=== PATIENT | female | born 1990 | race Caucasian/White ===

== ENCOUNTER 2022-06-11 12:56 | Emergency (ER) | payer OTHER ==
[~2022-06-11] VITALS: Ht 165.1 cm; Wt 95.3 kg
--- NOTE | 2022-06-11 14:15 | NUR ---
Pt arrived with c/o LL back pain radiating to the LLQ of the abd, rated 7/10, characterized as aching. Also stated that she's having pain on her L upper thigh, also rated 7/10 and characterized as tingling. Pt stated that she noticed the pain started on April 2022 and has gotten worse. Pt last bm and meal was this morning. No dysuria and hematuria reported. Pt stated that she has difficulty bending forward and walking d/t pain. Seen by Dr. Cunningham for MSE.
[2022-06-11 14:24] LABS: HEMATOCRIT 39.6 % (31.2-41.9); MEAN CORPUSCULAR HEMOGLOBIN 26.4 uug (24.7-32.8); PLATELET COUNT (AUTO) 291 K/uL (179-408)
[2022-06-11 14:25] LABS: CREATININE 0.7 mg/dL (0.6-1.3); POTASSIUM 4.2 mmol/L (3.5-5.1)
[2022-06-11 14:28] LABS: *BILIRUBIN,URIN NEGATIVE (NEGATIVE); *BLOOD, URINE NEGATIVE (NEGATIVE); *CLARITY,URINE CLEAR (CLEAR); *COLOR,URINE YELLOW (YELLOW); *KETONES,URINE NEGATIVE (NEGATIVE); *UROBILINOGEN,URINE 0.2 E.U./dl (NORMAL); LEUKOCYTE ESTERASE ,URINE NEGATIVE (NEGATIVE); NITRITE, URINE NEGATIVE (NEGATIVE); PH,URINE 6.5 (5.0-8.0); UGLUCOSE NEGATIVE (NEGATIVE)
[2022-06-11 14:29] LABS: *URINE HCG, QUAL NEGATIVE (NEGATIVE)
[2022-06-11] MEDS ORDERED: KETOROLAC TROMETHAMINE 30 MG INJ ONE (14:43)
[2022-06-11] MEDS ORDERED: KETOROLAC TROMETHAMINE 30 MG INJ IVP ONE (14:45)
[2022-06-11] MEDS ORDERED: NAPR-1164 PO (16:18)
[2022-06-11] MEDS ORDERED: CYCL10TA9 PO (16:18)
--- NOTE | 2022-06-11 16:34 | NUR ---
Pt discharged to home in stable condition. Written and verbal after care instructions given. Pt verbalizes understanding of instructions. Stressed follow up or return to ER for worsening s/s.
[2022-06-11 16:36] VITALS: BP 137/81
== END 2022-06-11 16:37 | disposition home or self-care (01) ==
LOC: ER 12:59
DX: M54.42 Lumbago with sciatica, left side (principal); R10.32 Left lower quadrant pain
CPT/HCPCS: 99284; 74176; 96374; 80048; 81003; 84703; 85025; 36415; J1885; A4663

== ENCOUNTER 2022-10-27 21:05 | Emergency (ER) | payer OTHER ==
[~2022-10-27] VITALS: Ht 165.1 cm; Wt 108.9 kg
[~2022-10-27 21:05] MED LIST: CYCL10TA9 PO; NAPR-1164 PO
--- NOTE | 2022-10-27 23:30 | NUR ---
Dr. Alexis evaluated patient at bedside. MSE in progress
[2022-10-27] MEDS ORDERED: HYDR-3972 PO (23:55)
--- NOTE | 2022-10-28 00:21 | NUR ---
Patient discharged to home in stable condition. Written and verbal after care instructions given. Patient verbalizes understanding of instructions. Stressed follow up or return to ER for worsening s/s.
[2022-10-28 03:55] VITALS: BP 135/85
== END 2022-10-28 00:21 | disposition home or self-care (01) ==
LOC: ER 21:05
DX: H92.01 Otalgia, right ear (principal); H93.19 Tinnitus, unspecified ear
CPT/HCPCS: A4663

== ENCOUNTER 2023-06-18 14:10 | Emergency (ER) | payer OTHER ==
[~2023-06-18] VITALS: Ht 165.1 cm; Wt 112.5 kg
[~2023-06-18 14:10] MED LIST changes: +HYDR-3972 PO
[2023-06-18 17:21] VITALS: BP 141/85; TEMP 96.7; O2SAT 99
== END 2023-06-18 17:43 | disposition home or self-care (01) ==
LOC: ER 14:10
DX: M79.671 Pain in right foot (principal); Z79.899 Other long term (current) drug therapy
CPT/HCPCS: 73650; A4606; A4663

== ENCOUNTER 2023-09-10 17:26 | Emergency (ER) | payer OTHER ==
[~2023-09-10] VITALS: Ht 165.1 cm; Wt 104.3 kg
[2023-09-10] MEDS ORDERED: IV NORMAL SALINE 1000 ML BAG IV ONE (18:30)
[2023-09-10] MEDS ORDERED: HYDROCODONE/APAP 10-325 MG TABLET PO ONE (18:45)
[2023-09-10] MEDS ORDERED: ONDANSETRON ODT 4 MG TAB.RAPDIS SL ONE (18:45)
[2023-09-10 18:46] LABS: BASOPHILS # (AUTO) 0.4 K/UL (0.0-0.2); BASOPHILS % (AUTO) 4.8 % (0.0-2.0); DIFFERENTIAL COMMENT 1; EOSINOPHILS # (AUTO) 0.1 K/uL (0.0-0.7); EOSINOPHILS % (AUTO) 1.6 % (0.0-7.0); HEMATOCRIT 40.5 % (31.2-41.9); HEMOGLOBIN 12.9 g/dL (10.9-14.3); LYMPHOCYTES # (AUTO) 1.2 K/uL (0.8-4.8); LYMPHOCYTES % (AUTO) 14.5 % (20.5-51.5); MEAN CORPUSCULAR HGB CONC 32 g/dL (32.3-35.6); MEAN CORPUSCULAR VOLUME 81.6 fL (75.5-95.3); MONOCYTES # (AUTO) 0.4 K/uL (0.1-1.30); MONOCYTES % (AUTO) 4.6 % (0.0-11.0); NEUTROPHILS # (AUTO) 5.9 K/uL (1.8-8.9); NEUTROPHILS % (AUTO) 74.5 % (38.5-71.5); PLATELET COUNT (AUTO) 298 K/uL (179-408); RED BLOOD CELL COUNT(AUTO) 4.97 MIL/uL (3.63-4.92); RED CELL DISTRIBUTION WIDTH 14.4 % (12.3-17.7)
[2023-09-10 18:51] LABS: CALCIUM 9.4 mg/dL (8.5-10.1); CREATININE 0.7 mg/dL (0.6-1.3); POTASSIUM 4.4 mmol/L (3.5-5.1)
[2023-09-10 18:57] LABS: ALBUMIN 3.6 g/dL (3.4-5.0); BILIRUBIN,DIRECT 0.1 mg/dL (0.0-0.2); BILIRUBIN,TOTAL 0.2 mg/dL (0.2-1.0); TOTAL PROTEIN, SERUM 7.4 g/dL (6.4-8.2)
[2023-09-10] MEDS ORDERED: ONDANSETRON ODT 4 MG TAB.RAPDIS ONE (18:58)
[2023-09-10] MEDS ORDERED: HYDROCODONE/APAP 10-325 MG TABLET ONE (18:58)
[2023-09-10] MEDS ORDERED: OXYCODONE/APAP 5-325 MG TABLET ONE (20:13)
[2023-09-10] MEDS ORDERED: OXYCODONE/APAP 5-325 MG TABLET PO ONE (20:15)
[2023-09-10] MEDS ORDERED: ONDA4TAB5 PO (20:20)
[2023-09-10] MEDS ORDERED: OXYC-133 PO (20:20)
[2023-09-10 21:23] VITALS: BP 116/80; TEMP 97.8; O2SAT 98
== END 2023-09-10 21:24 | disposition home or self-care (01) ==
LOC: ER 17:29
DX: G89.29 Other chronic pain (principal); R51.9 Headache, unspecified; R42 Dizziness and giddiness; D64.9 Anemia, unspecified; Z79.899 Other long term (current) drug therapy; Z20.822 Contact with and (suspected) exposure to COVID-19
CPT/HCPCS: 99284; 96360; 87426; 80076; 80048; 85025; 36415; 93005; J7040; A4606; A4663; Q0162

== ENCOUNTER 2024-11-12 14:20 | Emergency (ER) | payer OTHER ==
[~2024-11-12] VITALS: Ht 165.1 cm; Wt 101.6 kg
[~2024-11-12 14:20] MED LIST changes: +ONDA4TAB5 PO; +OXYC-133 PO
[2024-11-12 15:46] LABS: *BILIRUBIN,URIN NEGATIVE (NEGATIVE); *BLOOD, URINE NEGATIVE (NEGATIVE); *CLARITY,URINE CLEAR (CLEAR); *COLOR,URINE YELLOW (YELLOW); *KETONES,URINE NEGATIVE (NEGATIVE); *PROTEIN,URINE NEGATIVE (NEGATIVE); *UROBILINOGEN,URINE 0.2 E.U./dl (NORMAL); LEUKOCYTE ESTERASE ,URINE NEGATIVE (NEGATIVE); NITRITE, URINE NEGATIVE (NEGATIVE); UGLUCOSE NEGATIVE (NEGATIVE)
[2024-11-12 15:52] LABS: *URINE HCG, QUAL NEGATIVE (NEGATIVE)
[2024-11-12 18:06] VITALS: BP 112/80; O2SAT 99
== END 2024-11-12 18:07 | disposition home or self-care (01) ==
LOC: ER 14:20
DX: M54.16 Radiculopathy, lumbar region (principal); M79.651 Pain in right thigh; M79.652 Pain in left thigh
CPT/HCPCS: 84703; A4606; A4663

== ENCOUNTER 2024-12-10 03:33 | Emergency (ER) | payer OTHER ==
[~2024-12-10] VITALS: Ht 165.1 cm; Wt 101.2 kg
[2024-12-10 05:28] LABS: BASOPHILS % (AUTO) 0.3 % (0.0-2.0); EOSINOPHILS # (AUTO) 0.2 K/uL (0.0-0.7); EOSINOPHILS % (AUTO) 1.5 % (0.0-7.0); HEMATOCRIT 39.2 % (31.2-41.9); HEMOGLOBIN 12.9 g/dL (10.9-14.3); MEAN CORPUSCULAR HEMOGLOBIN 27.1 uug (24.7-32.8); MEAN CORPUSCULAR HGB CONC 33 g/dL (32.3-35.6); MEAN CORPUSCULAR VOLUME 82.5 fL (75.5-95.3); MONOCYTES # (AUTO) 0.8 K/uL (0.1-1.30); MONOCYTES % (AUTO) 6.9 % (0.0-11.0); NEUTROPHILS # (AUTO) 7.9 K/uL (1.8-8.9); NEUTROPHILS % (AUTO) 66.3 % (38.5-71.5); PLATELET COUNT (AUTO) 323 K/uL (179-408); RED BLOOD CELL COUNT(AUTO) 4.76 MIL/uL (3.63-4.92); RED CELL DISTRIBUTION WIDTH 13.8 % (12.3-17.7)
[2024-12-10 05:31] LABS: *BILIRUBIN,URIN NEGATIVE (NEGATIVE); *BLOOD, URINE NEGATIVE (NEGATIVE); *CLARITY,URINE CLEAR (CLEAR); *COLOR,URINE YELLOW (YELLOW); *KETONES,URINE NEGATIVE (NEGATIVE); *PROTEIN,URINE NEGATIVE (NEGATIVE); *URINE HCG, QUAL NEGATIVE (NEGATIVE); *UROBILINOGEN,URINE 0.2 E.U./dl (NORMAL); LEUKOCYTE ESTERASE ,URINE NEGATIVE (NEGATIVE); NITRITE, URINE NEGATIVE (NEGATIVE); UGLUCOSE NEGATIVE (NEGATIVE)
[2024-12-10 05:35] LABS: CALCIUM 9.2 mg/dL (8.5-10.1); CREATININE 0.7 mg/dL (0.6-1.3)
[2024-12-10 05:42] LABS: ALBUMIN 3.7 g/dL (3.4-5.0); BILIRUBIN,TOTAL 0.3 mg/dL (0.2-1.0); DIFFERENTIAL COMMENT 1; TOTAL PROTEIN, SERUM 7.6 g/dL (6.4-8.2)
[2024-12-10 05:44] LABS: *AMPHETAMINE, URINE NEGATIVE (NEGATIVE); *BARBITURATE, URINE NEGATIVE (NEGATIVE); *BENZODIAZEPINE, URINE NEGATIVE (NEGATIVE); *CANNABINOID, URINE NEGATIVE (NEGATIVE); *COCCAINE, URINE NEGATIVE (NEGATIVE); *OPIATE, URINE NEGATIVE (NEGATIVE); *PHENCYCLIDINE SCREEN,URINE NEGATIVE (NEGATIVE); FENTANYL, URINE NEGATIVE (NEGATIVE)
[2024-12-10 05:51] VITALS: O2SAT 98
[2024-12-10 05:59] LABS: THYROID STIMULATING HORMONE 7.481 mIU/mL (0.358-3.740)
== END 2024-12-10 08:40 | disposition home or self-care (01) ==
LOC: ER 03:36
DX: R51.9 Headache, unspecified (principal); M54.2 Cervicalgia; R20.0 Anesthesia of skin; M25.511 Pain in right shoulder
CPT/HCPCS: 36415; 70450; 72125; 84443; 84703; 85025; A4606; A4663

== ENCOUNTER 2025-03-24 15:38 | Emergency (ER) | payer OTHER ==
[~2025-03-24] VITALS: Ht 165.1 cm; Wt 97.5 kg
[2025-03-24 15:44] VITALS: BP 116/71
[2025-03-24] MEDS: KETOROLAC TROMETHAMINE 15 MG INJ IVP ONE (16:18)
[2025-03-24] MEDS: IV NORMAL SALINE 1000 ML BAG IV ONE (16:18)
[2025-03-24] MEDS ORDERED: KETOROLAC TROMETHAMINE 15 MG INJ ONE (16:18)
[2025-03-24 16:30] LABS: PLATELET COUNT (AUTO) 266 K/uL (179-408); RED BLOOD CELL COUNT(AUTO) 4.64 MIL/uL (3.63-4.92); RED CELL DISTRIBUTION WIDTH 15.1 % (12.3-17.7); WHITE BLOOD COUNT (AUTO) 8.6 K/uL (3.8-11.8)
[2025-03-24 16:39] LABS: CREATININE 0.7 mg/dL (0.6-1.3); SODIUM SERUM 143 mmol/L (136-145); UREA NITROGEN, BLOOD 12 mg/dL (7-18)
[2025-03-24 17:50] VITALS: BP 116/71; O2SAT 98
== END 2025-03-24 17:51 | disposition home or self-care (01) ==
LOC: ER 15:38
DX: R07.89 Other chest pain (principal); R06.00 Dyspnea, unspecified; Z86.69 Personal history of other diseases of the nervous system and sense organs
CPT/HCPCS: 99285; 96374; 96361; 71045; 80048; 85025; 85379; 84484; 36415; 93005; J1885; J7040; A4606; A4663